=== PATIENT | female | born 2000 | race Two or more races ===

== ENCOUNTER 2024-01-29 21:34 | Observation (INO) | payer OTHER ==
[2024-01-29 21:40] VITALS: BMI 18.6
[2024-01-29] MEDS ORDERED: ACETAMINOPHEN INJECTION 100 ML ONE (22:06)
[2024-01-29] MEDS ORDERED: FAMOTIDINE 20 MG/50 ML IVPB 20 MG/50 ML MG IVPB ONE (22:07)
[2024-01-29] MEDS: SODIUM CHLORIDE 0.9% 500 ML INFUS.BAG IV ONE (22:22)
[2024-01-29] MEDS: ACETAMINOPHEN 1000 MG/100 ML BAG IVPB ONE (22:22)
[2024-01-29] MEDS: FAMOTIDINE 20 MG/50 ML IVPB 20 MG/50 ML MG IVPB ONE (22:22)
[2024-01-29 22:40] LABS: BASO % 0.5 % (0-2.0); EOS % 1.2 % (0-4.5); HEMOGLOBIN 13.2 GM/dL (10.7-15.3); LYMPH % 22.3 % (8-40); MCH 30.3 pg (25.7-33.7); MCHC 33.8 g/dl (32.0-36.0); MEAN CELL VOLUME 89.6 fl (80-96); MEAN PLT VOLUME 9.4 fl (7.5-11.1); MONO % 4.3 % (3.8-10.2); NEUT % 71.7 % (42.8-82.8); PLATELET COUNT 225 10^3/uL (134-434); RBC 4.35 M/mm3 (3.60-5.2); RDW 13.2 % (11.6-15.6); WHITE BLOOD COUNT 6.7 K/mm3 (4.0-10.0)
[2024-01-29 22:50] LABS: INR 1.03 (0.83-1.09); PROTHROMBIN TIME (PATIENT) 11.8 SEC (9.7-13.0)
[2024-01-29 22:58] LABS: POTASSIUM 3.5 mmol/L (3.5-5.1)
[2024-01-29 23:01] LABS: ALBUMIN 4.2 g/dl (3.4-5.0); BLOOD UREA NITROGEN 7.9 mg/dL (7-18); CALCIUM 9.1 mg/dL (8.5-10.1); MAGNESIUM 2.1 mg/dL (1.8-2.4)
[2024-01-29 23:04] LABS: CREATININE 0.5 mg/dL (0.55-1.3)
[2024-01-29 23:06] LABS: BILIRUBIN,TOTAL 0.6 mg/dL (0.2-1); TOT PROT 7.5 g/dl (6.4-8.2)
[2024-01-29] MEDS ORDERED: ONDANSETRON 4 MG TABLET PO ONE (23:21)
[2024-01-29] MEDS ORDERED: SUCRALFATE 1 GM TABLET (FP) ONE (23:24)
[2024-01-29] MEDS: ONDANSETRON 4 MG TABLET PO ONE (23:26)
[2024-01-29] MEDS: DEXTROSE 5%-NORMAL SALINE 500 ML IV ONE (23:26)
[2024-01-29] MEDS: SUCRALFATE 1 GM TABLET (FP) PO ONE (23:47)
[2024-01-29] MEDS ORDERED: MORPHINE SULFATE 2 MG/ML SYRINGE ONE (23:49)
[2024-01-29] MEDS: morphine CARPU-JECT 2 MG/1 ML DISP.SYRIN IVPUSH ONE (23:54)
[2024-01-30] MEDS: FAMOTIDINE 20 MG/50 ML IVPB 20 MG/50 ML MG IVPB ONE (01:15)
[2024-01-30] MEDS ORDERED: ONDANSETRON 4 MG/2 ML VIAL IVPUSH PRN (02:32)
[2024-01-30] MEDS ORDERED: ACETAMINOPHEN 1000 MG/100 ML BAG IVPB PRN ×2 (02:35→22:27)
[2024-01-30] MEDS: LACTATED RINGERS SOLUTION 1,000 ML/1,000 ML INFUS.BAG IV SCH (04:01)
[2024-01-30 07:56] LABS: CHLORIDE 110 mmol/L (98-107); POTASSIUM 3.9 mmol/L (3.5-5.1); SODIUM 141 mmol/L (136-145)
[2024-01-30 08:00] LABS: ALBUMIN 3.5 g/dl (3.4-5.0)
[2024-01-30 08:01] LABS: ANION GAP 6 mmol/L (4-13); BLOOD UREA NITROGEN 6.5 mg/dL (7-18); CALCIUM 8.6 mg/dL (8.5-10.1); CO2 25 mmol/L (21-32); GLUCOSE,RANDOM 80 mg/dL (74-106)
[2024-01-30 08:02] LABS: MAGNESIUM 2.1 mg/dL (1.8-2.4)
[2024-01-30 08:03] LABS: SGPT/ALT 19 U/L (13-61)
[2024-01-30 08:04] LABS: CREATININE 0.5 mg/dL (0.55-1.3); PHOSPHOROUS 3.8 mg/dL (2.5-4.9); SGOT/AST 6 U/L (15-37)
[2024-01-30 08:05] LABS: BILIRUBIN,TOTAL 0.5 mg/dL (0.2-1); TOT PROT 6.3 g/dl (6.4-8.2)
[2024-01-30 08:06] LABS: ALK PHOS 51 U/L (45-117)
[2024-01-30 08:11] LABS: HEMATOCRIT 34.3 % (32.4-45.2); HEMOGLOBIN 11.6 GM/dL (10.7-15.3); MCH 30.7 pg (25.7-33.7); MCHC 33.9 g/dl (32.0-36.0); MEAN CELL VOLUME 90.4 fl (80-96); MEAN PLT VOLUME 9.5 fl (7.5-11.1); PLATELET COUNT 201 10^3/uL (134-434); RBC 3.79 M/mm3 (3.60-5.2); RDW 13.3 % (11.6-15.6); WHITE BLOOD COUNT 4.9 K/mm3 (4.0-10.0)
[2024-01-30] MEDS: PANTOPRAZOLE SODIUM 40 MG VIAL IVPUSH SCH (10:17)
[2024-01-30] MEDS ORDERED: DEXTROSE 5%-LACTATED RINGERS 1,000 ML IV SCH (10:30)
[2024-01-30] MEDS: DEXTROSE 5%-LACTATED RINGERS 1,000 ML IV SCH (11:06)
[2024-01-30] MEDS: ACETAMINOPHEN 1000 MG/100 ML BAG IVPB SCH (11:13)
[2024-01-30 11:25] VITALS: RESP 18
[2024-01-30] MEDS: SUCRALFATE 1 GM/10 ML UNIT DOSE CUPS PO SCH ×2 (11:33→18:44)
[2024-01-30] MEDS: ONDANSETRON 4 MG/2 ML VIAL IVPUSH SCH (13:07)
[2024-01-30] MEDS: SUCRALFATE 1 GM/10 ML UNIT DOSE CUPS PO ONE (17:03)
[2024-01-30] MEDS ORDERED: IBUPROFEN 400 MG TABLET (FP) PO PRN (22:27)
[2024-01-30] MEDS ORDERED: SUCRALFATE 1 GM TABLET (FP) PO ONE (23:09)
[2024-01-31 10:04] LABS: EOS % 3.8 % (0-4.5); HEMATOCRIT 34.2 % (32.4-45.2); HEMOGLOBIN 11.5 GM/dL (10.7-15.3); LYMPH % 40.2 % (8-40); MCH 30.7 pg (25.7-33.7); MCHC 33.8 g/dl (32.0-36.0); MEAN PLT VOLUME 9.1 fl (7.5-11.1); MONO % 5.2 % (3.8-10.2); NEUT % 49.8 % (42.8-82.8); PLATELET COUNT 184 10^3/uL (134-434); RBC 3.76 M/mm3 (3.60-5.2); RDW 13.1 % (11.6-15.6); WHITE BLOOD COUNT 3.5 K/mm3 (4.0-10.0)
[2024-01-31 10:26] LABS: POTASSIUM 3.7 mmol/L (3.5-5.1)
[2024-01-31 10:27] LABS: CALCIUM 8.8 mg/dL (8.5-10.1)
[2024-01-31 10:28] LABS: BLOOD UREA NITROGEN 5.5 mg/dL (7-18); MAGNESIUM 1.9 mg/dL (1.8-2.4)
[2024-01-31 10:31] LABS: CREATININE 0.7 mg/dL (0.55-1.3); PHOSPHOROUS 2.8 mg/dL (2.5-4.9)
[2024-01-31 15:40] VITALS: BP 121/74; PULSE 78; TEMP 98.3
[2024-02-01 19:07] LABS: GLIADIN ANTIBODY IGA 3 units (0-19); GLIADIN ANTIBODY IGG 2 units (0-19); TRANSGLUTAMINASE IGG 5 U/mL (0-5)
== END 2024-01-31 17:12 | disposition home or self-care (01) ==
LOC: JER 21:34 → JERBED 01-30 01:00 → UNDOADMOB 01-30 01:00 → INTOOBSV 01-30 01:00 → J6S 01-30 03:00 → JERBED 01-30 03:00 → J6S 01-31 11:55
PROVIDERS: ADMIT Internal Medicine; ATTEND Internal Medicine
PROC: 3E033NZ Introduction of Analgesics, Hypnotics, Sedatives into Peripheral Vein, Percutaneous Approach (ICD-10-PCS; principal; 2024-01-31)
PROC: 3E0337Z Introduction of Electrolytic and Water Balance Substance into Peripheral Vein, Percutaneous Approach (ICD-10-PCS; 2024-01-31)
PROC: 3E033GC Introduction of Other Therapeutic Substance into Peripheral Vein, Percutaneous Approach (ICD-10-PCS; 2024-01-31)
DX: R11.2 Nausea with vomiting, unspecified (principal); R10.13 Epigastric pain; R63.30 Feeding difficulties, unspecified
CPT/HCPCS: 36415; 70460-TC; 71046-TC-FY; 71260-TC; 74177-TC; 76705-TC; 80048; 80053; 82607; 82784; 82941; 83036; 83516; 83690; 83735; 84100; 84439; 84443; 84703; 85025; 85027; 85610; 85651; 86038; 86140; 86850; 86900; 86901; 93005; 93010; 96361; 96365; 96375; 96376; 99285-25; G0378; J0131; Q9967